=== PATIENT | female | born 1975 | race Caucasian/White ===

== ENCOUNTER 2017-11-12 06:50 | Emergency (ER) | payer OTHER ==
[2017-11-12 07:00] VITALS: BP 136/85; PULSE 79; RESP 18; TEMP 96.8
--- NOTE | 2017-11-12 07:52 | ED ---
General Adult HPI - General Chief complaint: Skin/Abscess/Foreign Body Stated complaint: facial swelling Time Seen by Provider: 11/12/17 07:00 Source: patient, RN notes reviewed Mode of arrival: ambulatory Limitations: no limitations - History of Present Illness Initial comments: This is a 41-year-old female presents emergency Department with 2 abscesses on her face that have been there for 2 days she states one was draining but it no longer straining. Patient states the pain is getting considerably worse in the abscesses are getting larger. Patient is requesting that we do an I&D. Patient denies any fever chills patient denies any pain in the teeth patient denies any other abscesses except those 2. Patient denies any drug abuse. - Related Data Previous Rx's Medication Instructions Recorded Cephalexin [Keflex] 500 mg PO Q6HR #28 cap 11/12/17 Sulfamethox-Tmp 800-160Mg [Bactrim 1 each PO Q12HR #14 tab 11/12/17 DS 800-160 mg] Sulfamethox-Tmp 800-160Mg [Bactrim 1 each PO Q12HR #28 tab 11/12/17 DS 800-160 mg] Allergies Allergy/AdvReac Type Severity Reaction Status Date / Time erythromycin base Allergy Severe Unknown Verified 11/12/17 07:28 [From E-Mycin] azithromycin [From Zithromax] Allergy Unknown Verified 11/12/17 07:28 Childhood Review of Systems ROS Statement: Those systems with pertinent positive or pertinent negative responses have been documented in the HPI. ROS Other: All systems not noted in ROS Statement are negative. 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: None Reported Past Surgical History: No Surgical Hx Reported Additional Past Surgical History / Comment(s): Surgery on right wrist Past Anesthesia/Blood Transfusion Reactions: No Reported Reaction Past Psychological History: Depression Smoking Status: Current every day smoker Past Alcohol Use History: Rare Past Drug Use History: Marijuana, Opiates, Prescription Drug Abuse - Past Family History Mother Family Medical History: Cancer Additional Family Medical History / Comment(s): mom had throat cancer, 3 aunts had cancer-breast General Exam - General Exam Comments Initial Comments: GENERAL Patient is well-developed and well-nourished. Patient is in mild distress. EYES Patient's pupils are equal and round. Extraocular motion is intact SKIN Is an abscess on the left side of the patient's face along the mandible and there is another abscess just above the mandible on the right side. The left side measures about 1-1/2 cm in diameter in the right measures about 1 cm in diameter NEURO The patient is alert and oriented 3 PYSCH Patient has normal interpersonal interactions. MUSCULOSKELETAL Limitations: no limitations Course Vital Signs 11/12/17 06:57 Temperature 96.8 F L Pulse Rate 79 Respiratory 18 Rate Blood Pressure 136/85 O2 Sat by Pulse 100 Oximetry Procedures - Incision & Drainage Consent Obtained: verbal consent Site: face Anesthetic Used: lidocaine 1% I&D Cleaning Method: Betadine Scalpel Used: #15 Needle Aspiration Performed?: Yes I&D Drainage Obtained: Pus Culture Obtained?: Yes Complications: pain Patient Tolerated Procedure: well Disposition Clinical Impression: Facial abscess Disposition: HOME SELF-CARE Instructions: Abscess (ED) Prescriptions: Cephalexin [Keflex] 500 mg PO Q6HR #28 cap Sulfamethox-Tmp 800-160Mg [Bactrim DS 800-160 mg] 1 each PO Q12HR #14 tab Sulfamethox-Tmp 800-160Mg [Bactrim DS 800-160 mg] 1 each PO Q12HR #28 tab Referrals: Sulaiman Cohen MD [Primary Care Provider] - 1-2 days Time of Disposition: 07:50
[2017-11-12] MEDS ORDERED: SULFAMETHOX-TMP 800-160MG 1 EACH TAB PO STA (07:53)
[2017-11-12] MEDS ORDERED: CEPHALEXIN 500 MG CAP PO STA (07:54)
== END 2017-11-12 08:00 | disposition home or self-care (01) ==
LOC: EC 06:50
DX: L02.01 Cutaneous abscess of face (principal); F17.200 Nicotine dependence, unspecified, uncomplicated; Z85.89 Personal history of malignant neoplasm of other organs and systems; Z88.1 Allergy status to other antibiotic agents
CPT/HCPCS: 10060; 87070; 87205; 99283

== ENCOUNTER 2018-08-07 12:05 | Emergency (ER) | payer OTHER ==
[2018-08-07 12:12] VITALS: BP 113/83; PULSE 100; RESP 16; TEMP 97.4
[2018-08-07] MEDS ORDERED: LIDOCAINE 1% INJ 10MG/ML (20 ML MDV) SQ STA (12:31)
--- NOTE | 2018-08-07 13:01 | ED ---
General Adult HPI - General Chief complaint: ENT Stated complaint: ear pain Time Seen by Provider: 08/07/18 12:22 Source: patient, RN notes reviewed Mode of arrival: ambulatory Limitations: no limitations - History of Present Illness Initial comments: Patient 42-year-old female presented to the emergency room today with chief complaint of possible abscess to the left year and underneath the right axilla. Patient states that she's never had anything similar response in the past. She states 5 days ago she felt a scato the left ear canal and used a small stick to try to scratch. She states that she's noticed had some increased swelling to the top part of the left ear over the last few days. Denies any drainage. Patient also admits that she noticed a spot in the right axilla over the last 2 days. She states both areas are tender and painful. Denies any other complaints or symptoms. Patient denies any recent fever, chills, shortness of breath, chest pain, back pain, abdominal pain, nausea or vomiting, numbness or tingling, headaches or visual changes, or any other complaints. - Related Data Previous Rx's Medication Instructions Recorded Cephalexin [Keflex] 500 mg PO Q6HR #28 cap 11/12/17 Sulfamethox-Tmp 800-160Mg [Bactrim 1 each PO Q12HR #14 tab 11/12/17 DS 800-160 mg] Sulfamethox-Tmp 800-160Mg [Bactrim 1 each PO Q12HR #28 tab 11/12/17 DS 800-160 mg] Sulfamethox-Tmp 800-160Mg [Bactrim 1 tab PO Q12HR #20 tab 08/07/18 DS 800-160 mg] Allergies Allergy/AdvReac Type Severity Reaction Status Date / Time erythromycin base Allergy Severe Unknown Verified 08/07/18 12:12 [From E-Mycin] azithromycin [From Zithromax] Allergy Unknown Verified 08/07/18 12:12 Childhood Review of Systems ROS Statement: Those systems with pertinent positive or pertinent negative responses have been documented in the HPI. ROS Other: All systems not noted in ROS Statement are negative. 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: MRSA Date of last positivie culture/infection: 11/12/17 MDRO Source:: face Past Surgical History: No Surgical Hx Reported Additional Past Surgical History / Comment(s): Surgery on right wrist Past Anesthesia/Blood Transfusion Reactions: No Reported Reaction Past Psychological History: Depression Smoking Status: Current every day smoker Past Alcohol Use History: Rare Past Drug Use History: Marijuana, Opiates, Prescription Drug Abuse - Past Family History Mother Family Medical History: Cancer Additional Family Medical History / Comment(s): mom had throat cancer, 3 aunts had cancer-breast General Exam - General Exam Comments Initial Comments: General: The patient is awake and alert, in no distress, and does not appear acutely ill. Ears, nose, mouth and throat: Patient does have abscess located to the superior aspect of the left ear canal. There is no active drainage. Neck: The neck is supple Musculoskeletal: Normal ROM, no tenderness. Strength 5/5. Sensation intact. Pulses equal bilaterally 2+. Neurological: A&O x 3. CN II-XII intact, There are no obvious motor or sensory deficits. Coordination appears grossly intact. Speech is normal. Skin: Patient does have small abscess to the right axilla measures approximately 1 cm. Area is firm on palpation there is no fluctuant center. He does have abscess to the left ear canal is mild fluctuance. This at the superior aspect of the left ear canal. No active drainage. Psychiatric: Cooperative, appropriate mood & affect, normal judgment. Limitations: no limitations Course Vital Signs 08/07/18 12:08 Temperature 97.4 F L Pulse Rate 100 Respiratory 16 Rate Blood Pressure 113/83 O2 Sat by Pulse 100 Oximetry Procedures - Procedures Initial comment: The left ear canals anesthetized with lidocaine locally placed in the ear canal and left for 20 minutes. An 18-gauge needle used to make small incision of the abscess to this. Left ear canal. Small amount of bloody drainage removed. Patient did not tolerate procedure well. Disposition Clinical Impression: Abscess of right axilla, Abscess of left ear canal Disposition: HOME SELF-CARE Condition: Good Instructions: Abscess (ED) Additional Instructions: Please use warm compresses to the affected area. Please use antibiotic as prescribed. Please return to emergency room symptoms increase or worsen or for any other concerns. Prescriptions: Sulfamethox-Tmp 800-160Mg [Bactrim DS 800-160 mg] 1 tab PO Q12HR #20 tab Is patient prescribed a controlled substance at d/c from ED?: No Referrals: Gonzalo Parsons DO [Primary Care Provider] - 1-2 days Time of Disposition: 13:04
[2018-08-07] MEDS ORDERED: SULFAMETH-TMP DS STARTER PACK 2 TAB BTL PO STA (13:04)
== END 2018-08-07 13:14 | disposition home or self-care (01) ==
LOC: EC 12:05
DX: H60.02 Abscess of left external ear (principal); L02.411 Cutaneous abscess of right axilla; F17.200 Nicotine dependence, unspecified, uncomplicated; Z86.14 Personal history of Methicillin resistant Staphylococcus aureus infection; Z88.1 Allergy status to other antibiotic agents
CPT/HCPCS: 99282; 69020; J2001

== ENCOUNTER 2019-05-27 14:46 | Inpatient (IN) | payer OTHER ==
--- NOTE | 2019-05-27 15:17 | ED ---
Lower Extremity Injury HPI - General Source: patient Mode of arrival: wheelchair Limitations: no limitations <Laura Gee - Last Filed: 05/27/19 22:37> <Emilia Lim - Last Filed: 05/31/19 16:11> - General Chief Complaint: Extremity Injury, Lower Stated Complaint: rt knee pain and swelling Time Seen by Provider: 05/27/19 15:12 - History of Present Illness Initial Comments: 43-year-old female presents emergency department for evaluation of right anterior knee pain and redness. Patient states that a few days prior she scraped her right knee after hitting the anterior aspect. Patient said she was able to ambulate and thought it was only a small abrasion. Patient states that her candidate developed redness over the past 2 days, she states is increasing today as well as an area that was draining. The abrasion. Patient denies any large fluctuant abscesses. Patient denies any posterior knee redness or pain. She states that when she extends her knee in full extension she has increased pain. Patient states she is able to bend her knee. Patient states that she can weight-bear walking is difficult. Patient has a fever or flulike symptoms. Patient states she was SYMPTOMS online and was administered she was septic and presented [facility] for further evaluation. Remaining review of system negative. Patient denies any other complaints patient denies any history of prosthesis, IV drug use (Laura Gee) - Related Data Home Medications Medication Instructions Recorded Confirmed Acetaminophen [Tylenol] 650 mg PO Q6H PRN 05/27/19 05/27/19 Ibuprofen [Motrin Ib] 800 mg PO Q6H PRN 05/27/19 05/27/19 Previous Rx's Medication Instructions Recorded Sulfamethox-Tmp 800-160Mg [Bactrim 1 tab PO Q12HR #28 tab 05/31/19 DS 800-160 mg] Allergies Allergy/AdvReac Type Severity Reaction Status Date / Time erythromycin base Allergy Severe Unknown Verified 05/27/19 16:30 [From E-Mycin] azithromycin [From Zithromax] Allergy Unknown Verified 05/27/19 16:30 Childhood Review of Systems ROS Other: All systems not noted in ROS Statement are negative. <Laura Gee - Last Filed: 05/27/19 22:37> ROS Other: All systems not noted in ROS Statement are negative. <Emilia Lim - Last Filed: 05/31/19 16:11> ROS Statement: Those systems with pertinent positive or pertinent negative responses have been documented in the HPI. 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: MRSA Date of last positivie culture/infection: 11/12/17 MDRO Source:: face Past Surgical History: No Surgical Hx Reported Additional Past Surgical History / Comment(s): Surgery on right wrist Past Anesthesia/Blood Transfusion Reactions: No Reported Reaction Past Psychological History: Depression Smoking Status: Current every day smoker Past Alcohol Use History: Rare Past Drug Use History: Marijuana, Opiates, Prescription Drug Abuse - Past Family History Mother Family Medical History: Cancer Additional Family Medical History / Comment(s): mom had throat cancer, 3 aunts had cancer-breast <Laura Gee - Last Filed: 05/27/19 22:37> General Exam Limitations: no limitations <Laura Gee - Last Filed: 05/27/19 22:37> - General Exam Comments Initial Comments: General: The patient is awake and alert Eye: +3 mm pupils are equal, round and reactive to light, extra-ocular movements are intact. No nystagmus. There is normal conjunctiva bilaterally. No signs of icterus. Ears, nose, mouth and throat: There are moist mucous membranes and no oral lesions. Neck: The neck is supple, there is no tenderness or JVD. Cardiovascular: There is a regular rate and rhythm. No murmur, rub or gallop is appreciated. Respiratory: Lungs are clear to auscultation, respirations are non-labored, breath sounds are equal. No wheezes, stridor, rales, or rhonchi. Gastrointestinal: Soft, non-distended, non-tender abdomen without masses or organomegaly noted. There is no rebound or guarding present. Musculoskeletal: Upon inspection of the knees bilaterally there is anterior soft tissue swelling and redness over the right anterior knee. There is no posterior redness or swelling or pain to palpation. Patient is diffusely tender over the anterior knee. There is no abscess . Small area of abrasion with drainage. Patient is able to flex however when it comes and maximal angle patient states the pain is intolerable patient is unable to fully extend the knee secondary to pain. Patient is able to weight-bear and stand. Strength preserved sensation intact both proximal and distal to injury site. +2 dorsalis pedis pulses bilaterally. Neurological: A&O x 3. CN II-XII intact grossly, There are no obvious motor or sensory deficits. Coordination appears grossly intact. Speech is normal. Skin: Skin is warm and dry and no rashes or lesions are noted. Psychiatric: Cooperative, appropriate mood & affect, normal judgment. (Laura Gee) Course Vital Signs 05/27/19 05/27/19 05/27/19 15:13 17:25 18:43 Temperature 97.9 F 98.1 F 98.0 F Pulse Rate 110 H 96 97 Respiratory 18 18 18 Rate Blood Pressure 113/71 108/84 111/83 O2 Sat by Pulse 99 100 100 Oximetry Medical Decision Making - Lab Data Result diagrams: 05/27/19 17:22 05/27/19 17:22 <Laura Gee - Last Filed: 05/27/19 22:37> - Lab Data Result diagrams: 05/30/19 06:32 05/31/19 07:01 <Emilia Lim - Last Filed: 05/31/19 16:11> - Medical Decision Making 43-year-old female presents emergency department for evaluation of red right knee x 2 days. Patient has an obvious overlying cellulitis of the right anterior knee joint. Patient is able to range greater than I would expected septic joint however cannot rule this without arthrocentesis. Patient does not have a large knee joint effusion on imaging studies. There is no obvious large bursa however there is trace amount of fluid within the suprapatellar bursa. We discussed with patient arthrocentesis and need for diagnosis, rule out. Patient refused stating she does not want that procedure performed even after discussion of risk vs benefit. Patient continued to refuse. Patient was offered a rthrocentesis by Dr. Lim attending provider who did evaluate the patient in person. Patient laboratory studies reveal mild leukocytosis. Lactic Acid WNL. Patient does not appears septic. Patient VS stable. Antibiotics initiated. Blood cultures pending. At this time we feel patient admission for IV antibiotics is appropriate. Admitted provider accepted after speaking with Dr. Lim. Orthopedic on consult. Patient agreeable with admission at this time. (Laura Gee) I was available for consultation in the emergency department. The history and physical exam were done by the midlevel provider. I was consulted for this patients care. I reviewed the case with the midlevel provider and based on their presentation of the patient, I agree with the assessment, medical decision making and plan of care as documented. I evaluated the patient myself and recommended arthrocentesis. Patient refused. She is aware of the risks of not allowing me to perform the procedure. I recommended hospital admission. The patient agreed. I spoke with the admitting doctor who accepted the admission with ortho to consult Chart was dictated using [employer] dictation software. Attempts were made to correct any dictation errors however some typographical errors may persist. (Emilia Lim) - Lab Data Lab Results 05/27/19 05/27/19 05/27/19 Range/Units 17:22 17:22 17:22 WBC 11.5 H (3.8-10.6) k/uL RBC 4.45 (3.80-5.40) m/uL Hgb 13.3 (11.4-16.0) gm/dL Hct 38.9 (34.0-46.0) % MCV 87.3 (80.0-100.0) fL MCH 29.8 (25.0-35.0) pg MCHC 34.1 (31.0-37.0) g/dL RDW 12.7 (11.5-15.5) % Plt Count 241 (150-450) k/uL Neutrophils % 87 % Lymphocytes % 7 % Monocytes % 5 % Eosinophils % 0 % Basophils % 0 % Neutrophils # 10.0 H (1.3-7.7) k/uL Lymphocytes # 0.8 L (1.0-4.8) k/uL Monocytes # 0.5 (0-1.0) k/uL Eosinophils # 0.0 (0-0.7) k/uL Basophils # 0.0 (0-0.2) k/uL Sodium 138 (137-145) mmol/L Potassium 3.5 (3.5-5.1) mmol/L Chloride 101 (98-107) mmol/L Carbon Dioxide 29 (22-30) mmol/L Anion Gap 8 mmol/L BUN 9 (7-17) mg/dL Creatinine 0.67 (0.52-1.04) mg/dL Est GFR (CKD-EPI)AfAm >90 (>60 ml/min/1.73 sqM) Est GFR (CKD-EPI)NonAf >90 (>60 ml/min/1.73 sqM) Glucose 102 H (74-99) mg/dL Plasma Lactic Acid Imtiaz 0.9 (0.7-2.0) mmol/L Calcium 8.8 (8.4-10.2) mg/dL Total Bilirubin 0.6 (0.2-1.3) mg/dL AST 21 (14-36) U/L ALT 29 (9-52) U/L Alkaline Phosphatase 78 (38-126) U/L Total Protein 7.7 (6.3-8.2) g/dL Albumin 4.1 (3.5-5.0) g/dL Ur Specific [place] (1.001-1.035) Urine HCG, Qual (Not Detectd) Vancomycin Trough ug/mL Urine Opiates Screen (Negative) ng/mL Urine Methadone Screen (Negative) ng/mL Ur Propoxyphene Screen (Negative) ng/mL Urine Barbiturates (Negative) ng/mL Ur Phencyclidine Scrn (Negative) ng/mL Ur Amphetamine Screen (Negative) ng/mL U Benzodiazepines Scrn (Negative) ng/mL Urine Cocaine Screen (Negative) ng/mL U Cannabinoids Screen (Negative) ng/mL Urine Alcohol (Negative) mg/dL 05/28/19 05/28/19 05/29/19 Range/Units 06:27 06:27 09:53 WBC 8.1 (3.8-10.6) k/uL RBC 4.16 (3.80-5.40) m/uL Hgb 12.3 (11.4-16.0) gm/dL Hct 36.4 (34.0-46.0) % MCV 87.5 (80.0-100.0) fL MCH 29.7 (25.0-35.0) pg MCHC 33.9 (31.0-37.0) g/dL RDW 12.4 (11.5-15.5) % Plt Count 205 (150-450) k/uL Neutrophils % % Lymphocytes % % Monocytes % % Eosinophils % % Basophils % % Neutrophils # (1.3-7.7) k/uL Lymphocytes # (1.0-4.8) k/uL Monocytes # (0-1.0) k/uL Eosinophils # (0-0.7) k/uL Basophils # (0-0.2) k/uL Sodium 137 (137-145) mmol/L Potassium 3.3 L (3.5-5.1) mmol/L Chloride 102 (98-107) mmol/L Carbon Dioxide 29 (22-30) mmol/L Anion Gap 6 mmol/L BUN 4 L (7-17) mg/dL Creatinine 0.52 (0.52-1.04) mg/dL Est GFR (CKD-EPI)AfAm >90 (>60 ml/min/1.73 sqM) Est GFR (CKD-EPI)NonAf >90 (>60 ml/min/1.73 sqM) Glucose 109 H (74-99) mg/dL Plasma Lactic Acid Imtiaz (0.7-2.0) mmol/L Calcium 8.2 L (8.4-10.2) mg/dL Total Bilirubin (0.2-1.3) mg/dL AST (14-36) U/L ALT (9-52) U/L Alkaline Phosphatase (38-126) U/L Total Protein (6.3-8.2) g/dL Albumin (3.5-5.0) g/dL Ur Specific [place] (1.001-1.035) Urine HCG, Qual (Not Detectd) Vancomycin Trough ug/mL Urine Opiates Screen Negative (Negative) ng/mL Urine Methadone Screen Negative (Negative) ng/mL Ur Propoxyphene Screen Negative (Negative) ng/mL Urine Barbiturates Negative (Negative) ng/mL Ur Phencyclidine Scrn Negative (Negative) ng/mL Ur Amphetamine Screen Positive H (Negative) ng/mL U Benzodiazepines Scrn Positive H (Negative) ng/mL Urine Cocaine Screen Negative (Negative) ng/mL U Cannabinoids Screen Positive H (Negative) ng/mL Urine Alcohol Negative (Negative) mg/dL 05/29/19 05/29/19 05/29/19 Range/Units 09:53 09:53 09:59 WBC (3.8-10.6) k/uL RBC (3.80-5.40) m/uL Hgb (11.4-16.0) gm/dL Hct (34.0-46.0) % MCV (80.0-100.0) fL MCH (25.0-35.0) pg MCHC (31.0-37.0) g/dL RDW (11.5-15.5) % Plt Count (150-450) k/uL Neutrophils % % Lymphocytes % % Monocytes % % Eosinophils % % Basophils % % Neutrophils # (1.3-7.7) k/uL Lymphocytes # (1.0-4.8) k/uL Monocytes # (0-1.0) k/uL Eosinophils # (0-0.7) k/uL Basophils # (0-0.2) k/uL Sodium (137-145) mmol/L Potassium (3.5-5.1) mmol/L Chloride (98-107) mmol/L Carbon Dioxide (22-30) mmol/L Anion Gap mmol/L BUN (7-17) mg/dL Creatinine (0.52-1.04) mg/dL Est GFR (CKD-EPI)AfAm (>60 ml/min/1.73 sqM) Est GFR (CKD-EPI)NonAf (>60 ml/min/1.73 sqM) Glucose (74-99) mg/dL Plasma Lactic Acid Imtiaz (0.7-2.0) mmol/L Calcium (8.4-10.2) mg/dL Total Bilirubin (0.2-1.3) mg/dL AST (14-36) U/L ALT (9-52) U/L Alkaline Phosphatase (38-126) U/L Total Protein (6.3-8.2) g/dL Albumin (3.5-5.0) g/dL Ur Specific [place] 1.007 (1.001-1.035) Urine HCG, Qual Not Detected (Not Detectd) Vancomycin Trough 10.5 ug/mL Urine Opiates Screen (Negative) ng/mL Urine Methadone Screen (Negative) ng/mL Ur Propoxyphene Screen (Negative) ng/mL Urine Barbiturates (Negative) ng/mL Ur Phencyclidine Scrn (Negative) ng/mL Ur Amphetamine Screen (Negative) ng/mL U Benzodiazepines Scrn (Negative) ng/mL Urine Cocaine Screen (Negative) ng/mL U Cannabinoids Screen (Negative) ng/mL Urine Alcohol (Negative) mg/dL Disposition Is patient prescribed a controlled substance at d/c from ED?: No Time of Disposition: 17:01 Decision to Admit Reason: Admit from EC Decision Date: 05/27/19 Decision Time: 17:01 <Laura Gee - Last Filed: 05/27/19 22:37> <Emilia Lim - Last Filed: 05/31/19 16:11> Clinical Impression: Septic bursitis, Cellulitis of right knee, Right knee pain Disposition: ADMITTED IP TO THIS HOSP Condition: Stable
[2019-05-27] MEDS ORDERED: cefTRIAXone 1,000 MG VIAL (IM USE) IM STA (15:18)
[2019-05-27] MEDS ORDERED: HYDROcodone/APAP 5-325MG 1 EACH TAB PO STA (15:18)
--- NOTE | 2019-05-27 15:33 | XR ---
EXAMINATION TYPE: XR knee complete RT DATE OF EXAM: 05/27/2019 COMPARISON: NONE HISTORY: Swelling, cellulitis TECHNIQUE: Four views are submitted. FINDINGS: Joint spaces are preserved. Osseous structures are intact. No acute fracture seen. Diffuse subcuta neous edema. Trace amount of fluid in the suprapatellar bursa IMPRESSION: 1. Diffuse soft tissue edema. Cannot exclude a trace amount of fluid in the suprapatellar bursa.
[2019-05-27] MEDS ORDERED: VANCOMYCIN IV PER PHARMACY 1 EACH MISC MISCELLANE PRN (16:55)
[2019-05-27] MEDS ORDERED: NALOXONE 0.4 MG/ML 1 ML VIAL IV PRN (16:56)
[2019-05-27] MEDS ORDERED: VANCOMYCIN 1,250 MG in SODIUM CHLORIDE 0.9% 250 ML IVPB ONE (17:15)
[2019-05-27 17:37] LABS: Basophils % (A) 0 %; Eosinophils % (A) 0 %; HCT 38.9 % (34.0-46.0); HGB 13.3 gm/dL (11.4-16.0); Lymphocytes # (A) 0.8 k/uL (1.0-4.8); Lymphocytes % (A) 7 %; MCH 29.8 pg (25.0-35.0); MCHC 34.1 g/dL (31.0-37.0); MCV 87.3 fL (80.0-100.0); Monocytes # (A) 0.5 k/uL (0-1.0); Monocytes % (A) 5 %; Neutrophils % (A) 87 %; Platelet Count 241 k/uL (150-450); RBC 4.45 m/uL (3.80-5.40); RDW 12.7 % (11.5-15.5); WBC 11.5 k/uL (3.8-10.6)
[2019-05-27 17:46] LABS: ALT 29 U/L (9-52); AST 21 U/L (14-36); African American GFR (CKD) >90 (>60 ml/min/1.73 sqM); Albumin 4.1 g/dL (3.5-5.0); Alkaline Phosphatase 78 U/L (38-126); Anion Gap 8 mmol/L; Blood Urea Nitrogen 9 mg/dL (7-17); Calcium 8.8 mg/dL (8.4-10.2); Carbon Dioxide 29 mmol/L (22-30); Chloride 101 mmol/L (98-107); Glucose 102 mg/dL (74-99); Potassium 3.5 mmol/L (3.5-5.1); Sodium 138 mmol/L (137-145); Total Bilirubin 0.6 mg/dL (0.2-1.3); Total Protein 7.7 g/dL (6.3-8.2)
[2019-05-27] MEDS ORDERED: ACETAMINOPHEN TAB 325 MG TAB PO PRN (18:40)
[2019-05-27] MEDS ORDERED: BISACODYL 5 MG TABLET.DR PO PRN (18:40)
[2019-05-27] MEDS ORDERED: MELATONIN 5 MG TABLET PO PRN (18:44)
[2019-05-27] MEDS ORDERED: ALBUTEROL NEBULIZED 2.5 MG/3 ML INHALATION PRN (18:46)
--- NOTE | 2019-05-27 18:50 | P.HPIM ---
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 In the emergency department she underwent an extensive evaluation. On arrival she was tachycardic with a heart rate of 110. Laboratory analysis showed an elevated white blood cell count 11.5, an x-ray of the right knee showed soft tissue edema with trace amounts of fluid in the suprapatellar bursa. She was given a dose of Rocephin and vancomycin the emergency department. She was admitted for concerns of septic bursitis. Patient seen and examined at bedside in the emergency department. She is recently been helping her family with haunted house in the [facility]. She is playing the role of a whitch, she would be kneeling on the damp ground and jump up. On Thursday she noted a slight cut on her right knee and pain, tightness, and swelling. She did note a small abrasion to the prepatellar area that was dark. She initially thought that she had used the need to much with bending and jumping. On Thursday she noted some warmth and erythema. Yesterday she was havi ng high amounts of pain in that knee. The knee became acutely red, the swelling greatly increased, and she started having purulent drainage from directly below the abrasion. She also noted a small fluctuant area developed over the kneecap. She was having some generalized fever and chills, decreased appetite, malaise, nausea, and overall not feeling well. She took several Tylenol yesterday which took the edge off the pain. Today she began to feel worse and have more pain so she presented to the emergency department. She states the pain is actually the worst when she is trying to lay still or with rest. She denies any history of prior injury to the knee. She does report a history of facial cellulitis but is unsure whether it was MRSA or not. No history of IVDA. Review of Systems Pertinent positives and negatives as discussed in HPI, a complete review of systems was performed and all other systems are negative. 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: MRSA Date of last positivie culture/infection: 11/12/17 MDRO Source:: face Additional Past Surgical History / Comment(s): Surgery on right wrist Past Anesthesia/Blood Transfusion Reactions: No Reported Reaction Past Psychological History: Depression Smoking Status: Current every day smoker Past Alcohol Use History: Rare Past Drug Use History: Cocaine, Marijuana Additional History: Currently smokes marijuana, reports history of cocaine abuse but not years, lives with her son - Past Family History Mother Family Medical History: Cancer Additional Family Medical History / Comment(s): mom had throat cancer, 3 aunts had cancer-breast Medications and Allergies Home Medications Medication Instructions Recorded Confirmed Type Acetaminophen [Tylenol] 650 mg PO Q6H PRN 05/27/19 05/27/19 History Ibuprofen [Motrin Ib] 800 mg PO Q6H PRN 05/27/19 05/27/19 History Allergies Allergy/AdvReac Type Severity Reaction Status Date / Time erythromycin base Allergy Severe Unknown Verified 05/27/19 16:30 [From E-Mycin] azithromycin [From Zithromax] Allergy Unknown Verified 05/27/19 16:30 Childhood Physical Exam Osteopathic Statement: *. No significant issues noted on an osteopathic structu ral exam other than those noted in the History and Physical/Consult. Vitals: Vital Signs Temp Pulse Resp BP Pulse Ox 05/27/19 17:25 98.1 F 96 18 108/84 100 05/27/19 15:13 97.9 F 110 H 18 113/71 99 Intake and Output 05/27/19 05/27/19 05/27/19 06:59 14:59 22:59 Other: Weight 63.503 kg General: ill appearing, mild distress due to pain, appears older than stated age , normal weight Derm: Eryhtema, with warmth small area of brasain and distal to that small area of purulence, swelling, no limitation of flexion or extension of the knee. no unusual ecchymoses, warm, dry Head: atraumatic, normocephalic, symmetric Eyes: EOMI, no lid lag, anicteric sclera, pupils equal round reactive to light ENT: Nose and ears atraumatic, no thrush, no pharyngeal erythema Neck: No thyromegaly, no cervical lymphadenopathy, trachea midline, supple Mouth: no lip lesion, mucus membranes moist Cardiovascular: S1S2 reg, no murmur, positive posterior tibial pulse bilateral, 1+ non pitting edema right calf, capillary refill less than 2 seconds Lungs: CTA bilateral, no rhonchi, no rales , no accessory muscle use Abdominal: soft, nontender to palpation, no guarding, no appreciable organomegaly, normal bowel sounds Ext: no gross muscle atrophy, muscle strength 5 out of 5 in upper extremities grossly, no contractures, Neuro: CN II-XI grossly intact, light touch intact all 4 extremities, finger to nose within normal limits, Psych: Alert, oriented, appropriate affect Results CBC & Chem 7: 05/27/19 17:22 10 17:22 Labs: Abnormal Lab Results - Last 24 Hours (Table) 05/27/19 05/27/19 Range/Units 17:22 17:22 WBC 11.5 H (3.8-10.6) k/uL Neutrophils # 10.0 H (1.3-7.7) k/uL Lymphocytes # 0.8 L (1.0-4.8) k/uL Glucose 102 H (74-99) mg/dL Comments: knee x-ray reviewed Thrombosis Risk Factor Assmnt - DVT/VTE Prophylaxis DVT/VTE Prophylaxis: Low risk, early ambulation encouraged Assessment and Plan Assessment: Right knee cellulitis with possible septic bursitis and intractable pain - vanco - consult ortho - IV fluids - Await blood cultures - pain control - Consult ID in AM if erythemia is not significantly improved asked nursing to yoli line of demarcation. Tobacco abuse - cessation - nicotine replacement asthma, mild intermittent - not on outpatient medications - prn albuterol The patient is placed in observation with an anticipated less than 2 midnight stay for evaluation of Knee septic bursitis. Required monitoring and IV antibiotics as if this is septic bursitis and is left untreated has a higher likely of permanent joint damaged, development of bacteremia, and potential evolution to systemic sepsis. Surrogate decision-maker: Gallito montalvo ED -[phone] CODE STATUS:full DVT prophylaxis: Early ambulation Discussed with: patient Anticipated discharge date: 2-[address]: home A total of 65 minutes was spent on the care of this complex patient more than 50% of the time was spent in counseling and care coordination.
[2019-05-27] MEDS: HYDROcodone/APAP 5-325MG 1 EACH TAB PO PRN (19:44)
[2019-05-27] MEDS: ONDANSETRON 4 MG/2 ML VIAL IVP SCH (19:46)
[2019-05-27] MEDS: SODIUM CHLORIDE 0.9% 1,000 ML IV SCH (21:31)
[2019-05-28] MEDS: ONDANSETRON 4 MG/2 ML VIAL IVP SCH ×3 (01:01→18:27)
[2019-05-28] MEDS: HYDROcodone/APAP 5-325MG 1 EACH TAB PO PRN ×4 (01:01→22:16)
[2019-05-28] MEDS: VANCOMYCIN 1,250 MG in SODIUM CHLORIDE 0.9% 250 ML IVPB SCH ×3 (02:32→18:34)
[2019-05-28] MEDS: SODIUM CHLORIDE 0.9% 1,000 ML IV SCH ×2 (02:32→15:40)
[2019-05-28 06:58] LABS: HCT 36.4 % (34.0-46.0); HGB 12.3 gm/dL (11.4-16.0); MCH 29.7 pg (25.0-35.0); MCHC 33.9 g/dL (31.0-37.0); MCV 87.5 fL (80.0-100.0); Mean Platelet Volume 6.4; Platelet Count 205 k/uL (150-450); RBC 4.16 m/uL (3.80-5.40); RDW 12.4 % (11.5-15.5); WBC 8.1 k/uL (3.8-10.6)
[2019-05-28 07:12] LABS: African American GFR (CKD) >90 (>60 ml/min/1.73 sqM); Anion Gap 6 mmol/L; Blood Urea Nitrogen 4 mg/dL (7-17); Calcium 8.2 mg/dL (8.4-10.2); Carbon Dioxide 29 mmol/L (22-30); Chloride 102 mmol/L (98-107); Glucose 109 mg/dL (74-99); Potassium 3.3 mmol/L (3.5-5.1); Sodium 137 mmol/L (137-145)
[2019-05-28] MEDS ORDERED: POTASSIUM CHLORIDE ER 20 MEQ TAB.ER PO STA (08:34)
[2019-05-28] MEDS: NICOTINE 14MG/24HR PATCH TRANSDERM SCH (09:19)
[2019-05-28] MEDS: MORPHINE SULFATE 4 MG/ML SYRINGE IVP PRN (09:51)
--- NOTE | 2019-05-28 14:17 | P.CONS ---
History of Present Illness - Reason for Consult Consult date: 05/28/19 - Chief Complaint Injury right knee - History of Present Illness 43-year-old female who presents emergency center for evaluation of increasing pain to her right knee. 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 She relates over the days before coming in she's having increasing pain and discomfort to her knee. She thought she had a small injury from the kneeling. Eventually she had some increasing warmth and erythema noticed that the the area became very warm and red MrThompson to have some dr holley for there was a small cut that had formed. It markedly increased in size and consequently presents to the emergency centerDoes not recall having any particular difficulties like this in the past. She feels like she's been somewhat febrile but no significant chills or rigors. She feels quite poorly. 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 She does have a known history of recreational drug use which she relates is not current Review of Systems 43-year-old woman feels poorly HEENT:Denies headache or acute visual change. Denies sinus or mouth discomforts. Denies neck stiffness or pain. Denies significant oral cavity pain. Denies difficulty on swallowing. Lungs: Denies significant shortness of breath, cough, sputum production, or hemoptysis. Cardiovascular: Denies significant shortness of breath, chest pain, chest wall pain, orthopnea, dyspnea on exertion, syncope Gastrointestinal:Denies nausea, vomiting, diarrhea, constipation, hematemesis, melena, hematochezia. No no significant change of bowel habit noticed. Musculoskeletal: As per the HPI significant pain and swelling discomfort right knee Skin: Denies new rash or lesions. No new ulcers or wounds are related.. Neuro: Denies headache or visual change. Denies any new onset weakness or difficulty with ambulation. Denies falls or seizures. Psychiatric: Chronic anxiety and depression Endocrine: Chronic fatigue difficulty keeping her weight 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: MRSA Year Discovered:: 11/12/17 MDRO Source:: face Past Surgical History: No Surgical Hx Reported Additional Past Surgical History / Comment(s): Surgery on right wrist Past Anesthesia/Blood Transfusion Reactions: No Reported Reaction Past Psychological History: Depression Additional Psychological History / Comment(s): Single. Works for the [employer] business. Has not been recently incarcerated. Has a history of recreational drug use continues to use marijuana denies current cocaine or methamphetamine use. It is related that she did lose custody of her children because of her drug use. Is an ongoing active tobacco smoker. Denies Alcohol use. no experience. Denies animal exposures. But is having a severe amount of exposure to outside due to her work Smoking Status: Current every day smoker Past Alcohol Use History: Rare Past Drug Use History: Marijuana, Opiates, Prescription Drug Abuse - Past Family History Mother Family Medical History: Cancer Additional Family Medical History / Comment(s): mom had throat cancer, 3 aunts had cancer-breast Medications and Allergies Home Medications and Allergies Comment(s): Current Medications Acetaminophen (Tylenol Tab) 650 mg PO Q6HR PRN PRN Reason: Mild Pain or Fever > 100.5 Hydrocodone Bitart/Acetaminophen ([place] 5-325) 1 each PO Q4HR PRN PRN Reason: Moderate Pain Last Admin: 05/28/19 04:36 Dose: 1 each Documented by: Albuterol Sulfate (Ventolin Nebulized) 2.5 mg INHALATION RT-QID PRN PRN Reason: Shortness Of Breath Or Wheezing Bisacodyl (Dulcolax) 5 mg PO DAILY PRN PRN Reason: Constipation Sodium Chloride (Saline 0.9%) 1,000 mls @ 100 mls/hr IV .Q10H [facility] Last Admin: 05/28/19 02:32 Dose: 100 mls/hr Documented by: Vancomycin HCl 1,250 mg/ (Sodium Chloride) 250 mls @ 125 mls/hr IVPB Q8H [facility] Last Admin: 05/28/19 12:02 Dose: 125 mls/hr Documented by: Ketorolac Tromethamine (Toradol) 15 mg IVP Q6HR PRN PRN Reason: Moderate Pain Stop: 06/26/19 18:41 Melatonin (Melatonin) 5 mg PO HS PRN PRN Reason: Insomnia Miscellaneous Information (Vancomycin Trough Due) 1 each MISCELLANE ONCE ONE Stop: 05/29/19 10:01 Morphine Sulfate (Morphine Sulfate (Inj)) 4 mg IVP Q4HR PRN PRN Reason: SEVERE Pain Last Admin: 05/28/19 09:51 Dose: 4 mg Documented by: Naloxone HCl (Narcan) 0.2 mg IV Q2M PRN PRN Reason: Opioid Reversal Nicotine (Habitrol 14mg/24hr Patch) 1 patch TRANSDERM DAILY [facility] Last Admin: 05/28/19 09:19 Dose: 1 patch Documented by: Ondansetron HCl (Zofran) 4 mg IVP Q8H [facility] Last Admin: 05/28/19 10:58 Dose: Not Given Documented by: Home Medications Medication Instructions Recorded Confirmed Type Acetaminophen [Tylenol] 650 mg PO Q6H PRN 05/27/19 05/27/19 History Ibuprofen [Motrin Ib] 800 mg PO Q6H PRN 05/27/19 05/27/19 History Allergies Allergy/AdvReac Type Severity Reaction Status Date / Time erythromycin base Allergy Severe Unknown Verified 05/27/19 16:30 [From E-Mycin] azithromycin [From Zithromax] Allergy Unknown Verified 05/27/19 16:30 Childhood Physical Exam Vitals: Vital Signs Temp Pulse Pulse Resp BP BP Pulse Ox 05/28/19 07:00 98 F 100 16 116/75 98 05/28/19 00:55 97.8 F 84 19 117/76 99 05/27/19 20:45 98.1 F 91 16 110/73 99 05/27/19 18:43 98.0 F 97 18 111/83 100 05/27/19 17:25 98.1 F 96 18 108/84 100 05/27/19 15:13 97.9 F 110 H 18 113/71 99 Intake and Output 05/27/19 05/28/19 05/28/19 22:59 06:59 14:59 Intake Total 250 Balance 250 Intake: Intake, IV Titration 250 Amount Vancomycin 1,250 mg In 250 Sodium Chloride 0.9% 250 ml @ 125 mls/hr IVPB Q8H [facility] Rx#:[id number] Other: Weight 63.503 kg 43-year-old woman who looks considerably older than her stated age HEENT: Anicteric conjunctiva are pink and moist nasal mucosa grossly intact without significant lesions, there is no thrush. Neck: The neck is supple without significant lymphadenopathy or thyromegaly. Lungs: Good bilateral air entry without significant crackles or wheezing. There is no significant bronchial sounds. There is no egophony or dullness. Heart: Regular rate and rhythm with an audible S1-S2, no S3 no S4. There is no significant murmur click or rub, PMI was nondisplaced. Abdomen: Positive bowel sounds soft and nontender without palpable masses or organomegaly. There was no guarding or rebound. Extremities: Upper extremities reveal evidence of the extensive amount of tattoos however none are new and none of them are infected does have evidence of the IV site without difficulty The bilateral lower extremities have no edema. However the right knee has evidence of the extensive change. There is no warmth or erythema without matthieu crepitance to the anterior aspect of the distal aspect of the knee. His some scant amount of expressible material that appears to be mildly seropurulent Neuro: Awake alert oriented to person place and time. There are no acute new gross focal sensory motor deficits. Does have some chronic anxiety. Results CBC & Chem 7: 05/28/19 06:27 05/28/19 06:27 Labs: Abnormal Lab Results - Last 24 Hours (Table) 05/27/19 05/27/19 05/28/19 Range/Units 17:22 17:22 06:27 WBC 11.5 H (3.8-10.6) k/uL Neutrophils # 10.0 H (1.3-7.7) k/uL Lymphocytes # 0.8 L (1.0-4.8) k/uL Potassium 3.3 L (3.5-5.1) mmol/L BUN 4 L (7-17) mg/dL Glucose 102 H 109 H (74-99) mg/dL Calcium 8.2 L (8.4-10.2) mg/dL Laboratory Results WBC 8.1 k/uL (3.8-10.6) 05/28/19 06:27 RBC 4.16 m/uL (3.80-5.40) 05/28/19 06:27 Hgb 12.3 gm/dL (11.4-16.0) 05/28/19 06:27 Hct 36.4 % (34.0-46.0) 05/28/19 06:27 MCV 87.5 fL (80.0-100.0) 05/28/19 06:27 MCH 29.7 pg (25.0-35.0) 05/28/19 06:27 MCHC 33.9 g/dL (31.0-37.0) 05/28/19 06:27 RDW 12.4 % (11.5-15.5) 05/28/19 06:27 Plt Count 205 k/uL (150-450) 05/28/19 06:27 Neutrophils % 87 % 05/27/19 17:22 Lymphocytes % 7 % 05/27/19 17:22 Monocytes % 5 % 05/27/19 17:22 Eosinophils % 0 % 05/27/19 17:22 Basophils % 0 % 05/27/19 17:22 Neutrophils # 10.0 k/uL (1.3-7.7) H 05/27/19 17:22 Lymphocytes # 0.8 k/uL (1.0-4.8) L 05/27/19 17:22 Monocytes # 0.5 k/uL (0-1.0) 05/27/19 17:22 Eosinophils # 0.0 k/uL (0-0.7) 05/27/19 17:22 Basophils # 0.0 k/uL (0-0.2) 05/27/19 17:22 Sodium 137 mmol/L (137-145) 05/28/19 06:27 Potassium 3.3 mmol/L (3.5-5.1) L 05/28/19 06:27 Chloride 102 mmol/L (98-107) 05/28/19 06:27 Carbon Dioxide 29 mmol/L (22-30) 05/28/19 06:27 Anion Gap 6 mmol/L 05/28/19 06:27 BUN 4 mg/dL (7-17) L 05/28/19 06:27 Creatinine 0.52 mg/dL (0.52-1.04) 05/28/19 06:27 Est GFR (CKD-EPI)AfAm >90 (>60 ml/min/1.73 sqM) 05/28/19 06:27 Est GFR (CKD-EPI)NonAf >90 (>60 ml/min/1.73 sqM) 05/28/19 06:27 Glucose 109 mg/dL (74-99) H 05/28/19 06:27 Plasma Lactic Acid Imtiaz 0.9 mmol/L (0.7-2.0) 05/27/19 17:22 Calcium 8.2 mg/dL (8.4-10.2) L 05/28/19 06:27 Total Bilirubin 0.6 mg/dL (0.2-1.3) 05/27/19 17:22 AST 21 U/L (14-36) 05/27/19 17:22 ALT 29 U/L (9-52) 05/27/19 17:22 Alkaline Phosphatase 78 U/L (38-126) 05/27/19 17:22 Total Protein 7.7 g/dL (6.3-8.2) 05/27/19 17:22 Albumin 4.1 g/dL (3.5-5.0) 05/27/19 17:22 Assessment and Plan (1) Cellulitis of right knee Narrative/Plan: 43-year-old female presents hospital with increasing pain and swelling discomfort to her right knee. She has been evaluated by orthopedics with no plan for surgical intervention at this point in time to the acute right prepatellar bursa infection. She does have a history of MRSA infection on her face and likely that is occurring on the knee at this point in time. Vancomycin therapy has been initiated will be continued for now. Local wound care with Silvadene wrap will be applied to try to help with discomfort. She will follow-up with orthopedics and if she is not improved she may need incision and drainage of that prepatellar bursa to allow it to drain if she does not rapidly improve. She believes she is up-to-date on her tetanus Multivitamin is added Have requested a protein supplement to help with her healing Current Visit: Yes Status: Acute Code(s): L03.115 - CELLULITIS OF RIGHT LOWER LIMB SNOMED Code(s): 57372259004904133 (2) Septic bursitis Current Visit: Yes Status: Acute Code(s): M71.10 - OTHER INFECTIVE BURSITIS, UNSPECIFIED SITE SNOMED Code(s): 029379324 (3) Smoker Current Visit: Yes Status: Acute Code(s): F17.200 - NICOTINE DEPENDENCE, UNSPECIFIED, UNCOMPLICATED SNOMED Code(s): 30956497
[2019-05-28] MEDS: KETOROLAC 30 MG/ML 1 ML VIAL IVP PRN (15:38)
[2019-05-28] MEDS: MULTIVITAMINS, THERA 1 EACH TAB PO SCH (15:39)
--- NOTE | 2019-05-28 20:06 | P.CNOR ---
History of Present Illness - [facility] Consult date: 05/28/19 Consult reason: joint pain History of present illness: Patient is a 43-year-old female seen at bedside this am in consultation for right knee prepatellar bursitis. She was admitted through the emergency department yesterday stating that a few days prior she scraped her right knee. Patient said she was able to ambulate and thought it was only a small abrasion. Patient states that she developed redness over the past 2 days, she states that it increased and developed a head and started to express purulence. Patient denies any large fluctuant abscesses. Patient denies any posterior knee redness or pain. Patient states she is able to bend and straighten her knee. Patient states that she can weight-bear but walking is painful at the front of her knee. She currently is denying fever or chills this morning. She has been receiving IV Vancomycin. Remaining review of system negative. Patient denies any other complaints patient denies any history of prosthesis, IV drug use Review of Systems All systems: negative Constitutional: Denies chills, Denies fever Eyes: denies blurred vision, denies pain Ears, nose, mouth and throat: Denies headache, Denies sore throat Cardiovascular: Denies chest pain, Denies shortness of breath Respiratory: Denies cough Gastrointestinal: Denies abdominal pain, Denies diarrhea, Denies nausea, Denies vomiting Genitourinary: Denies dysuria, Denies hematuria Musculoskeletal: Denies myalgias Integumentary: Denies pruritus, Denies rash Neurological: Denies numbness, Denies weakness Psychiatric: Denies anxiety, Denies depression Endocrine: Denies fatigue, Denies weight change 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: MRSA Year Discovered:: 11/12/17 MDRO Source:: face Past Surgical History: No Surgical Hx Reported Additional Past Surgical History / Comment(s): Surgery on right wrist Past Anesthesia/Blood Transfusion Reactions: No Reported Reaction Past Psychological History: Depression Additional Psychological History / Comment(s): Single. Works for the [employer]. Has not been recently incarcerated. Has a history of recreational drug use continues to use marijuana denies current cocaine or methamphetamine use. It is related that she did lose custody of her children because of her drug use. Is an ongoing active tobacco smoker. Denies Alcohol use. no experience. Denies animal exposures. But is having a severe amount of exposure to outside due to her work Smoking Status: Current every day smoker Past Alcohol Use History: Rare Past Drug Use History: Marijuana, Opiates, Prescription Drug Abuse - Past Family History Mother Family Medical History: Cancer Additional Family Medical History / Comment(s): mom had throat cancer, 3 aunts had cancer-breast Medications and Allergies Home Medications Medication Instructions Recorded Confirmed Type Acetaminophen [Tylenol] 650 mg PO Q6H PRN 05/27/19 05/27/19 History Ibuprofen [Motrin Ib] 800 mg PO Q6H PRN 05/27/19 05/27/19 History Allergies Allergy/AdvReac Type Severity Reaction Status Date / Time erythromycin base Allergy Severe Unknown Verified 05/27/19 16:30 [From E-Mycin] azithromycin [From Zithromax] Allergy Unknown Verified 05/27/19 16:30 Childhood Physical Examination Inspection reveals erythema about the anterior aspect of the knee. There is a small punctate wound with mild purulence. No active bleeding. There is no knee effusion. There is mild edema/cellulitus around the patella superficially. It remains within previous demarcation. It is warm to touch. There is anterior knee pain with flexion to 90 degrees. She has full extension. The knee is ligamentously stable. Calf is SNT. She is NVI with motor, sensation and per fusion Results - Labs Labs: Abnormal Lab Results - Last 24 Hours (Table) 05/28/19 Range/Units 06:27 Potassium 3.3 L (3.5-5.1) mmol/L BUN 4 L (7-17) mg/dL Glucose 109 H (74-99) mg/dL Calcium 8.2 L (8.4-10.2) mg/dL Microbiology - Last 24 Hours (Table) 05/27/19 17:22 Blood Culture - Preliminary Blood No Growth after 24 hours H & H 05/27/19 05/28/19 Range/Units 17:22 06:27 Hgb 13.3 12.3 (11.4-16.0) gm/dL Hct 38.9 36.4 (34.0-46.0) % Result Diagrams: 05/28/19 06:27 05/28/19 06:27 - Diagnostic results Knee x-ray: report reviewed Assessment and Plan (1) Cellulitis of right knee Narrative/Plan: Some minimal purulence was expressed at bedside. There is was no focal fluid collection or abcess to drain. The knee joint itself does not appear septic. Recommend continued IV antibiotics per infectious disease, pain management and wound care. Will follow closely and if she does not improve, we will consider further invasive intervention. Current Visit: Yes Status: Acute Priority: Medium Code(s): L03.115 - CELLULITIS OF RIGHT LOWER LIMB SNOMED Code(s): 51840649197015103 (2) Septic bursitis Current Visit: Yes Status: Acute Priority: Medium Code(s): M71.10 - OTHER INFECTIVE BURSITIS, UNSPECIFIED SITE SNOMED Code(s): 270797240
--- NOTE | 2019-05-28 20:52 | P.PN ---
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 In the emergency department she underwent an extensive evaluation. On arrival she was tachycardic with a heart rate of 110. Laboratory analysis showed an elevated white blood cell count 11.5, an x-ray of the right knee showed soft tissue edema with trace amounts of fluid in the suprapatellar bursa. She was given a dose of Rocephin and vancomycin the emergency department. She was admitted for concerns of septic bursitis. Vancomycin was continued. Orthopedic surgery and infectious disease were consulted. She was evaluated by orthopedic surgery who did not see need for drainage. She was ordered to soak the knee. Patient seen and examined at bedside. Pain is better controlled today. No chest pain, shortness breath, nausea, or vomiting. Still having difficulty bearing weight on her knee. Also having a hard time with moving the knee. The wound in her knee as "more with continued drainage. Objective - Vital Signs Vital signs: Vital Signs Temp 98.2 F 05/28/19 19:30 Pulse 108 H 05/28/19 19:30 Resp 16 05/28/19 19:30 BP 136/84 05/28/19 19:30 Pulse Ox 100 05/28/19 19:30 Intake & Output 05/28/19 05/28/19 05/29/19 06:59 18:59 06:59 Intake Total 250 Balance 250 Intake: Intake, IV Titration 250 Amount Vancomycin 1,250 mg In 250 Sodium Chloride 0.9% 250 ml @ 125 mls/hr IVPB Q8H [facility] Rx#:[id number] Other: # Voids 2 - Exam General: non toxic, no distress, appears older than stated age Derm: Erythema, swelling, warmth, and small opening of the right knee, warm, dry Head: atraumatic, normocephalic, symmetric Eyes: EOMI, no lid lag, anicteric sclera Mouth: no lip lesion, mucus membranes moist Cardiovascular: S1S2 reg, no murmur, positive posterior tibial pulse bilateral, Lungs: CTA bilateral, no rhonchi, no rales , no accessory muscle use Abdominal: soft, nontender to palpation, no guarding, no appreciable organomegaly Ext: no gross muscle atrophy, no edema, no contractures Neuro: CN II-XI grossly intact, no focal neuro deficits Psych: Alert, oriented, appropriate affect - Labs CBC & Chem 7: 05/28/19 06:27 05/28/19 06:27 Labs: Abnormal Lab Results - Last 24 Hours (Table) 05/28/19 Range/Units 06:27 Potassium 3.3 L (3.5-5.1) mmol/L BUN 4 L (7-17) mg/dL Glucose 109 H (74-99) mg/dL Calcium 8.2 L (8.4-10.2) mg/dL Microbiology - Last 24 Hours (Table) 05/27/19 17:22 Blood Culture - Preliminary Blood No Growth after 24 hours Assessment and Plan Assessment: Right knee cellulitis with possible and intractable pain - septic bursitis felt unlikely by ortho - vanco - ortho recs appreciated, warm soaks - IV fluids - Blood cultures negative to date - pain control - ID recs appreciated- Drainage of prepatellar bursa if no rapid improvement. Silvadene dressings Tobacco abuse - cessation - nicotine replacement asthma, mild intermittent - not on outpatient medications - prn albuterol Risks of discharge include worsening of infection leading to bacteremia or sepsis. Worsening damage of the knee joint. DVT prophylaxis: Early ambulation Discussed with: patient Anticipated discharge date: 2-[address]: home A total of 35 minutes was spent on the care of this complex patient more than 50% of the time was spent in counseling and care coordination.
[2019-05-29] MEDS: SODIUM CHLORIDE 0.9% 1,000 ML IV SCH ×3 (00:35→20:33)
[2019-05-29] MEDS: HYDROcodone/APAP 5-325MG 1 EACH TAB PO PRN ×3 (03:07→17:50)
[2019-05-29] MEDS: VANCOMYCIN 1,250 MG in SODIUM CHLORIDE 0.9% 250 ML IVPB SCH (03:08)
[2019-05-29] MEDS: ONDANSETRON 4 MG/2 ML VIAL IVP SCH ×3 (04:04→17:51)
[2019-05-29] MEDS: NICOTINE 14MG/24HR PATCH TRANSDERM SCH (07:44)
[2019-05-29] MEDS: MULTIVITAMINS, THERA 1 EACH TAB PO SCH (07:44)
[2019-05-29] MEDS ORDERED: LIDOCAINE 1%-EPI 1:100,000 20 ML VIAL SQ ONE (10:00)
[2019-05-29] MEDS ORDERED: VANCOMYCIN TROUGH DUE 1 EACH MISC MISCELLANE ONE (10:00)
[2019-05-29] MEDS: MORPHINE SULFATE 4 MG/ML SYRINGE IVP PRN (10:02)
[2019-05-29] MEDS: KETOROLAC 30 MG/ML 1 ML VIAL IVP PRN ×2 (10:03→23:57)
--- NOTE | 2019-05-29 10:37 | P.PN ---
Subjective Progress Note Date: 05/29/19 Principal diagnosis: Right knee septic bursitis Patient is seen at bedside this morning. We have been following for right knee prepatellar septic bursitis. She does not feel improved today. She continues to have pain at the right anterior knee. She is currently denying fever or chills. She denies numbness or tingling. She has no new complaints. She has been on IV antibiotics per Dr. Scott. Objective - Vital Signs Vital signs: Vital Signs Temp 98.2 F 05/29/19 07:00 Pulse 105 H 05/29/19 07:00 Resp 18 05/29/19 07:00 BP 136/79 05/29/19 07:00 Pulse Ox 100 05/29/19 07:00 Intake & Output 05/28/19 05/29/19 05/29/19 18:59 06:59 18:59 Intake Total 1000 Balance 1000 Intake: Intake, IV Titration 1000 Amount Sodium Chloride 0.9% 1, 1000 000 ml @ 100 mls/hr IV . Q10H [facility] Rx#:[id number] Other: Voiding Method Toilet # Voids 2 2 - Exam The erythema of the skin has improved some within the demarcation however she has developed a satellite lesion that is blisterlike. There is some more dehiscence and drainage of purulence at the prepatellar area. She is pain at this area as expected. There is no progression of cellulitis. Calf is soft and nontender. Motor and sensation is grossly intact throughout the right lower extremity. She has 2+ dorsalis pedis pulses less than 2 second capillary refill. - Constitutional General appearance: Present: no acute distress - Labs CBC & Chem 7: 05/28/19 06:27 05/28/19 06:27 Labs: Microbiology - Last 24 Hours (Table) 05/27/19 17:22 Blood Culture - Preliminary Blood No Growth after 24 hours Assessment and Plan (1) Cellulitis of right knee Narrative/Plan: Patient has been discussed with Dr. Scott and Dr. Prather. We decided to proceed with a bedside I&D. Utilizing sterile technique the area of the prepatellar bursa was vertically incised. Cultures were obtained prior to copious irrigation and expression of the wound after which it was dressed with a wet bandage. She'll continue with wet-to-dry dressing as well as soaks. continued IV antibiotics per infectious disease, pain management and wound care. Will follow closely and if she does not improve we will consider taking to the operating room. She will be nothing by mouth after midnight. Current Visit: Yes Status: Acute Priority: Medium Code(s): L03.115 - CELLULITIS OF RIGHT LOWER LIMB SNOMED Code(s): 06129018352127779 (2) Septic bursitis Current Visit: Yes Status: Acute Priority: Medium Code(s): M71.10 - OTHER INFECTIVE BURSITIS, UNSPECIFIED SITE SNOMED Code(s): 340355244 Time with Patient: Greater than 30 (Performing I&D)
[2019-05-29 10:40] VITALS: BMI 19.5
[2019-05-29] MEDS: VANCOMYCIN 1,500 MG in SODIUM CHLORIDE 0.9% 250 ML IVPB SCH ×2 (12:56→20:33)
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
--- NOTE | 2019-05-29 16:26 | P.PN ---
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 In the emergency department she underwent an extensive evaluation. On arrival she was tachycardic with a heart rate of 110. Laboratory analysis showed an elevated white blood cell count 11.5, an x-ray of the right knee showed soft tissue edema with trace amounts of fluid in the suprapatellar bursa. She was given a dose of Rocephin and vancomycin the emergency department. She was admitted for concerns of septic bursitis. Vancomycin was continued. Orthopedic surgery and infectious disease were consulted. She was evaluated by orthopedic surgery who did not see need for drainage. She was ordered to soak the knee. She did not have significant improvement in her knee erythema or swelling and she underwent bedside drainage on 05/29. Patient seen and examined at bedside. Feeling much better after her knee was d rained at bedside. Denies any chest pain, shortness of breath, nausea, vomiting, or diarrhea. Her son is with her visiting. Objective - Vital Signs Vital signs: Vital Signs Temp 98.1 F 05/29/19 15:00 Pulse 110 H 05/29/19 15:00 Resp 20 05/29/19 15:00 BP 114/80 05/29/19 15:00 Pulse Ox 100 05/29/19 15:00 Intake & Output 05/28/19 05/29/19 05/29/19 18:59 06:59 18:59 Intake Total 1000 Balance 1000 Weight 63.503 kg Intake: Intake, IV Titration 1000 Amount Sodium Chloride 0.9% 1, 1000 000 ml @ 100 mls/hr IV . Q10H [facility] Rx#:[id number] Other: Voiding Method Toilet # Voids 2 2 2 - Exam General: non toxic, no distress, appears older than stated age Derm: Bob wrap in place over right knee warm, dry Head: atraumatic, normocephalic, symmetric Eyes: EOMI, no lid lag, anicteric sclera Mouth: no lip lesion, mucus membranes moist Cardiovascular: S1S2 reg, no murmur, positive posterior tibial pulse bilateral, Lungs: CTA bilateral, no rhonchi, no rales , no accessory muscle use Abdominal: soft, nontender to palpation, no guarding, no appreciable organomegaly Ext: no gross muscle atrophy, no edema, no contractures Neuro: CN II-XI grossly intact, no focal neuro deficits Psych: Alert, oriented, appropriate affect - Labs CBC & Chem 7: 05/28/19 06:27 05/28/19 06:27 Labs: Microbiology - Last 24 Hours (Table) 05/27/19 17:22 Blood Culture - Preliminary Blood No Growth after 24 hours Assessment and Plan Assessment: Right knee cellulitis with prepatellar septic bursitis and intractable pain -Status post bedside I&D 05/29 by orthopedics - vanco - ortho recs appreciated, if lack of clinical improvement may need further drainage and debridement - await cultures - IV fluids - Blood cultures negative to date - pain control - ID recs appreciated- Drainage of prepatellar bursa if no rapid improvement. Silvadene dressings Tobacco abuse - cessation - nicotine replacement asthma, mild intermittent - not on outpatient medications - prn albuterol DVT prophylaxis: Early ambulation Discussed with: patient Anticipated discharge date: 2-[address]: home A total of 35 minutes was spent on the care of this complex patient more than 50% of the time was spent in counseling and care coordination.
[2019-05-30] MEDS: ONDANSETRON 4 MG/2 ML VIAL IVP SCH ×3 (02:46→16:14)
[2019-05-30] MEDS: SODIUM CHLORIDE 0.9% 1,000 ML IV SCH ×2 (05:03→16:14)
[2019-05-30] MEDS: VANCOMYCIN 1,500 MG in SODIUM CHLORIDE 0.9% 250 ML IVPB SCH ×3 (05:03→21:16)
[2019-05-30 07:32] LABS: African American GFR (CKD) >90 (>60 ml/min/1.73 sqM); Anion Gap 9 mmol/L; Blood Urea Nitrogen 4 mg/dL (7-17); Calcium 8.2 mg/dL (8.4-10.2); Carbon Dioxide 25 mmol/L (22-30); Chloride 105 mmol/L (98-107); Glucose 94 mg/dL (74-99); Potassium 3.5 mmol/L (3.5-5.1); Sodium 139 mmol/L (137-145)
[2019-05-30 07:54] LABS: HCT 37.7 % (34.0-46.0); HGB 12.9 gm/dL (11.4-16.0); MCH 29.8 pg (25.0-35.0); MCHC 34.1 g/dL (31.0-37.0); MCV 87.3 fL (80.0-100.0); Mean Platelet Volume 6.9; Platelet Count 245 k/uL (150-450); RBC 4.32 m/uL (3.80-5.40); RDW 12.5 % (11.5-15.5); WBC 5.1 k/uL (3.8-10.6)
[2019-05-30] MEDS: MULTIVITAMINS, THERA 1 EACH TAB PO SCH ×2 (08:24→08:25)
[2019-05-30] MEDS: NICOTINE 14MG/24HR PATCH TRANSDERM SCH (08:24)
[2019-05-30] MEDS: HYDROcodone/APAP 5-325MG 1 EACH TAB PO PRN ×2 (08:31→21:47)
[2019-05-30] MEDS: MORPHINE SULFATE 4 MG/ML SYRINGE IVP PRN ×2 (09:51→21:46)
--- NOTE | 2019-05-30 10:25 | P.PN ---
Subjective Progress Note Date: 05/30/19 Principal diagnosis: Right knee septic bursitis Patient is seen at bedside this morning. We have been following for right knee prepatellar septic bursitis. Yesterday I did a bedside I&D and cultures are showing presumptive MRSA. She has been on IV vancomycin. She does not feel improved today. She was talking about possibly leaving AMA. She continues to have pain at the right anterior knee. She is currently denying fever or chills. She denies numbness or tingling. She has no new complaints. Objective - Vital Signs Vital signs: Vital Signs Temp 98.2 F 05/30/19 08:15 Pulse 96 05/30/19 08:15 Resp 16 05/30/19 08:15 BP 128/86 05/30/19 08:15 Pulse Ox 99 05/30/19 08:15 Intake & Output 05/29/19 05/30/19 05/30/19 18:59 06:59 18:59 Weight 63.503 kg Other: Voiding Method Toilet # Voids 2 1 - Exam The erythema of the skin continues to show some improvement within the demarcation. The dressing is removed and the wet sterile gauze that was packed is no longer in place and thus there has been some closure of the wound. There continues to be some purulent drainage. She has pain at this area as expected. There is no progression of cellulitis. Calf is soft and nontender. Motor and sensation is grossly intact throughout the right lower extremity. She has 2+ dorsalis pedis pulses less than 2 second capillary refill. - Constitutional General appearance: Present: no acute distress - Labs CBC & Chem 7: 05/30/19 06:32 05/30/19 06:32 Labs: Abnormal Lab Results - Last 24 Hours (Table) 05/30/19 Range/Units 06:32 BUN 4 L (7-17) mg/dL Creatinine 0.44 L (0.52-1.04) mg/dL Calcium 8.2 L (8.4-10.2) mg/dL Microbiology - Last 24 Hours (Table) 05/29/19 10:20 Gram Stain - Preliminary Knee - Right Wound Culture - Preliminary Presumptive MRSA 05/27/19 17:22 Blood Culture - Preliminary Blood No Growth after 48 hours 05/29/19 10:20 Anaerobic Culture - Preliminary Knee - Right 05/29/19 10:20 Fungal Culture - Preliminary Knee - Right Assessment and Plan (1) Cellulitis of right knee Narrative/Plan: I again performed a bedside I&D utilizing sterile technique. The wound was anesthetized with local lidocaine. The wound was the opened up and copiously irrigated with sterile saline. The wound was then packed with 1/4 inch iodoform gauze. The wound was then dressed with sterile 4 x 4 gauze, Kerlix and an Bob bandage was applied to the right lower extremity. She is to maintain bandage and packing. Continued IV antibiotics per infectious disease. Continue pain m anagement and wound care. Will follow closely and if she does not improve we will consider taking her to the operating room tomorrow 05/31/2019. She may eat today. She will be nothing by mouth again after midnight tonight. Current Visit: Yes Status: Acute Priority: Medium Code(s): L03.115 - C ELLULITIS OF RIGHT LOWER LIMB SNOMED Code(s): 48686467562141083 (2) Septic bursitis Current Visit: Yes Status: Acute Priority: Medium Code(s): M71.10 - OTHER INFECTIVE BURSITIS, UNSPECIFIED SITE SNOMED Code(s): 597811196 Time with Patient: Greater than 30 (Performing I&D procedure)
[2019-05-30] MEDS ORDERED: VANCOMYCIN TROUGH DUE 1 EACH MISC MISCELLANE ONE (11:00)
[2019-05-30] MEDS: KETOROLAC 30 MG/ML 1 ML VIAL IVP PRN (13:46)
[2019-05-30 14:17] LABS: Urine Alcohol Negative (Negative); Urine Barbiturate Negative (Negative); Urine Cocaine Negative (Negative); Urine Methadone Negative (Negative); Urine Opiates Negative (Negative); Urine Phencyclidine Negative (Negative)
[2019-05-30] MEDS ORDERED: HYDROCORTISONE 1% CREAM 30 GM TUBE TOPICAL PRN (15:36)
[2019-05-30] MEDS ORDERED: diphenhydrAMINE 50 MG CAP PO PRN (15:36)
[2019-05-30] MEDS ORDERED: ONDANSETRON 4 MG/2 ML VIAL IVP PRN (19:25)
--- NOTE | 2019-05-30 19:27 | P.PN ---
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 In the emergency department she underwent an extensive evaluation. On arrival she was tachycardic with a heart rate of 110. Laboratory analysis showed an elevated white blood cell count 11.5, an x-ray of the right knee showed soft tissue edema with trace amounts of fluid in the suprapatellar bursa. She was given a dose of Rocephin and vancomycin the emergency department. She was admitted for concerns of septic bursitis. Vancomycin was continued. Orthopedic surgery and infectious disease were consulted. She was evaluated by orthopedic surgery who did not see need for drainage. She was ordered to soak the knee. She did not have significant i mprovement in her knee erythema or swelling and she underwent bedside drainage on 05/29. She still had swelling on 05/30 and repeat bedside I and D. Patient seen and examined at bedside. Reports that her pain is feeling better. He was feeling anxious this morning wanting to leave, we discussed that she should not leave AGAINST MEDICAL ADVICE. No nausea or vomiting. No diarrhea. No chest pain or shortness of breath. Reports that her anxiety is better. Objective - Vital Signs Vital signs: Vital Signs Temp 98.8 F 05/30/19 14:53 Pulse 90 05/30/19 14:53 Resp 16 05/30/19 14:53 BP 124/78 05/30/19 14:53 Pulse Ox 99 05/30/19 08:15 Intake & Output 05/30/19 05/30/19 05/31/19 06:59 18:59 06:59 Other: Voiding Method Toilet # Voids 1 3 - Exam General: non toxic, no distress, appears older than stated age Derm: Bob wrap in place over right knee warm, dry Head: atraumatic, normocephalic, symmetric Eyes: EOMI, no lid lag, anicteric sclera Mouth: no lip lesion, mucus membranes moist Cardiovascular: S1S2 reg, no murmur, positive posterior tibial pulse bilateral, Lungs: CTA bilateral, no rhonchi, no rales , no accessory muscle use Abdominal: soft, nontender to palpation, no guarding, no appreciable organomegaly Ext: no gross muscle atrophy, no edema, no contractures Neuro: CN II-XI grossly intact, no focal neuro deficits Psych: Alert, oriented, appropriate affect - Labs CBC & Chem 7: 05/30/19 06:32 05/30/19 06:32 Labs: Abnormal Lab Results - Last 24 Hours (Table) 05/29/19 05/30/19 Range/Units 09:53 06:32 BUN 4 L (7-17) mg/dL Creatinine 0.44 L (0.52-1.04) mg/dL Calcium 8.2 L (8.4-10.2) mg/dL Ur Amphetamine Screen Positive H (Negative) ng/mL U Benzodiazepines Scrn Positive H (Negative) ng/mL U Cannabinoids Screen Positive H (Negative) ng/mL Microbiology - Last 24 Hours (Table) 05/29/19 10:20 Gram Stain - Preliminary Knee - Right Wound Culture - Preliminary Presumptive MRSA 05/27/19 17:22 Blood Culture - Preliminary Blood No Growth after 48 hours 05/29/19 10:20 Anaerobic Culture - Preliminary Knee - Right 05/29/19 10:20 Fungal Culture - Preliminary Knee - Right Assessment and Plan Assessment: Right knee cellulitis with prepatellar septic bursitis and intractable pain - Status post bedside I&D 05/29 and 05/30 by orthopedics - vanco - ortho recs appreciated, if lack of clinical improvement may need further drainage and debridement in OR tomorrow - await final cultures presumptive MRSA - IV fluids - Blood cultures negative to date - pain control - ID recs appreciated Tobacco abuse - cessation - nicotine replacement asthma, mild intermittent - not on outpatient medications - prn albuterol Illicit substance use - cessation DVT prophylaxis: Early ambulation Discussed with: patient Anticipated discharge date: 1-[address]: home A total of 35 minutes was spent on the care of this complex patient more than 50% of the time was spent in counseling and care coordination.
[2019-05-30] MEDS ORDERED: diphenhydrAMINE 25 MG CAP PO PRN (21:59)
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
[2019-05-31] MEDS: VANCOMYCIN 1,500 MG in SODIUM CHLORIDE 0.9% 250 ML IVPB SCH ×2 (04:07→12:03)
[2019-05-31 08:56] LABS: African American GFR (CKD) >90 (>60 ml/min/1.73 sqM); Anion Gap 7 mmol/L; Blood Urea Nitrogen 4 mg/dL (7-17); Calcium 8.4 mg/dL (8.4-10.2); Carbon Dioxide 28 mmol/L (22-30); Chloride 106 mmol/L (98-107); Glucose 86 mg/dL (74-99); Potassium 3.8 mmol/L (3.5-5.1); Sodium 141 mmol/L (137-145)
[2019-05-31] MEDS: MULTIVITAMINS, THERA 1 EACH TAB PO SCH (09:16)
[2019-05-31] MEDS: HYDROcodone/APAP 5-325MG 1 EACH TAB PO PRN (09:19)
[2019-05-31] MEDS: NICOTINE 14MG/24HR PATCH TRANSDERM SCH (09:19)
[2019-05-31 12:36] VITALS: BP 122/76; PULSE 100; RESP 16; TEMP 97.7
[2019-05-31] MEDS ORDERED: METOCLOPRAMIDE 5 MG/ML 2 ML VIAL IVP PRN (13:23)
[2019-05-31] MEDS ORDERED: MIDAZOLAM 2 MG/2 ML VIAL IV PRN (13:23)
[2019-05-31] MEDS ORDERED: LIDOCAINE 1% 20 ML VIAL (10MG/ML) FOR IV START INTRADERMA PRN (13:23)
[2019-05-31] MEDS ORDERED: HYDROmorphone 0.5 MG/0.5 ML SYRINGE IVP PRN (13:23)
[2019-05-31] MEDS ORDERED: ONDANSETRON 4 MG/2 ML VIAL IVP PRN (13:23)
[2019-05-31] MEDS ORDERED: LACTATED RINGERS 1,000 ML IV SCH (13:30)
[2019-05-31] MEDS ORDERED: KETOROLAC 30 MG/ML 1 ML VIAL IVP SCH (18:00)
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
== END 2019-05-31 14:41 | disposition left against medical advice (07) | DRG 558 ==
LOC: EC 14:46 → 4SSUR 17:27 → OBSVTOIN 05-29 12:39
PROVIDERS: ADMIT Family Medicine; ATTEND Family Medicine
DX: M71.161 Other infective bursitis, right knee (principal); L03.115 Cellulitis of right lower limb; B95.62 Methicillin resistant Staphylococcus aureus infection as the cause of diseases classified elsewhere; J45.20 Mild intermittent asthma, uncomplicated; F12.10 Cannabis abuse, uncomplicated; Z71.6 Tobacco abuse counseling; F17.210 Nicotine dependence, cigarettes, uncomplicated; F32.9 Major depressive disorder, single episode, unspecified; F41.9 Anxiety disorder, unspecified; G40.909 Epilepsy, unspecified, not intractable, without status epilepticus; Z80.8 Family history of malignant neoplasm of other organs or systems; Z86.14 Personal history of Methicillin resistant Staphylococcus aureus infection; Z80.3 Family history of malignant neoplasm of breast; D49.0 Neoplasm of unspecified behavior of digestive system; Z88.1 Allergy status to other antibiotic agents; F14.11 Cocaine abuse, in remission
CPT/HCPCS: 36415; 80048; 80053; 80202; 80306; 81003; 81025; 83605; 85025; 85027; 87040; 87070; 87075; 87077; 87102; 87186; 87205; 96365; 96366; 96372; 99284

== ENCOUNTER 2023-09-17 23:11 | Emergency (ER) | payer OTHER ==
--- NOTE | 2023-09-18 00:18 | XR ---
EXAM: XR Left Hand Complete, 3 or More Views CLINICAL HISTORY: ITS.REASON XR Reason: closed garage door on fingers TECHNIQUE: Frontal, lateral and oblique views of the left hand. COMPARISON: No relevant prior studies available. 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 No acute fracture. No dislocation. Soft tissues: Unremarkable. No radiopaque foreign body. 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 No acute fracture.
[2023-09-18] MEDS ORDERED: ACETAMINOPHEN TAB 500 MG TAB PO STA (00:35)
[2023-09-18] MEDS ORDERED: IBUPROFEN 800 MG TAB PO STA (00:35)
--- NOTE | 2023-09-18 00:35 | ED ---
Upper Extremity HPI - General Chief Complaint: Extremity Injury, Upper Stated Complaint: Left hand injury Time Seen by Provider: 09/17/23 23:35 Source: patient Mode of arrival: ambulatory Limitations: no limitations - History of Present Illness Initial Comments: 47-year-old female presenting with chief complaint of left hand injury. Patient got her finger stuck in the garage door. She is particularly complaining of pain to the second and third digit. There is swelling noted to the distal end. She is having some numbness. She still has full range of motion of the fingers and hand. No lacerations or abrasions. - Related Data Home Medications Medication Instructions Recorded Confirmed Acetaminophen [Tylenol] 650 mg PO Q6H PRN 05/27/19 05/27/19 Ibuprofen [Motrin Ib] 800 mg PO Q6H PRN 05/27/19 05/27/19 Previous Rx's Medication Instructions Recorded Sulfamethox-Tmp 800-160Mg [Bactrim 1 tab PO Q12HR #28 tab 05/31/19 DS 800-160 mg] Allergies Allergy/AdvReac Type Severity Reaction Status Date / Time erythromycin base Allergy Severe Unknown Verified 09/17/23 23:22 [From E-Mycin] azithromycin [From Zithromax] Allergy Unknown Verified 09/17/23 23:22 Childhood Review of Systems ROS Statement: Those systems with pertinent positive or pertinent negative responses have been documented in the HPI. ROS Other: All systems not noted in ROS Statement are negative. 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: MRSA Date of last positivie culture/infection: 05/29/19 MDRO Source:: Right Knee Past Surgical History: No Surgical Hx Reported Additional Past Surgical History / Comment(s): Surgery on right wrist Past Anesthesia/Blood Transfusion Reactions: No Reported Reaction Past Psychological History: Depression Smoking Status: Current every day smoker Past Alcohol Use History: Rare Past Drug Use History: Marijuana, Opiates, Prescription Drug Abuse - Past Family History Mother Family Medical History: Cancer Additional Family Medical History / Comment(s): mom had throat cancer, 3 aunts had cancer-breast General Exam Limitations: no limitations General appearance: alert, in no apparent distress Head exam: Present: atraumatic, normocephalic Eye exam: Present: normal appearance, EOMI Neck exam: Present: normal inspection Respiratory exam: Absent: respiratory distress Cardiovascular Exam: Present: tachycardia Left Hand Wrist exam: Present: tenderness (Second and third fingers), swelling (Second and third fingers) Vascular: Absent: vascular compromise Neurological exam: Present: alert, oriented X3 Psychiatric exam: Present: normal affect, normal mood Skin exam: Present: warm, dry Course Vital Signs 09/17/23 23:22 Temperature 97.7 F Pulse Rate 118 H Blood Pressure 126/88 O2 Sat by Pulse 98 Oximetry Medical Decision Making - Medical Decision Making Was pt. sent in by a medical professional or institution (, PA, HORTICULTURAL SERVICES SUPERVISOR, urgent care, hospital, or fpc...) When possible be specific @ -No Did you speak to anyone other than the patient for history (EMS, parent, family, police, friend...)? What history was obtained from this source @ -No Did you review nursing and triage notes (agree or disagree)? Why? @ -I reviewed and agree with nursing and triage notes Were old charts reviewed (outside hosp., previous admission, EMS record, old EKG, old radiological studies, urgent care reports/EKG's, fpc records)? Report findings @ -No old charts were reviewed Differential Diagnosis (chest pain, altered mental status, abdominal pain women, abdominal pain men, vaginal bleeding, weakness, fever, dyspnea, syncope, headache, dizziness, GI bleed, back pain, seizure, CVA, palpatations, mental health, musculoskeletal)? @ -Differential Musculoskeletal Muscular strain, contusion, ligament sprain, fracture, arthritis, septic arthritis, bursitis, cellulitis, muscle spasm, nerve compression, DVT, arterial occlusion, herpes zoster, electrolyte abnormality, tumor.... This is not meant to be in all inclusive list EKG interpreted by me (3pts min.). @ -As above X-rays interpreted by me (1pt min.). @ -X-ray shows no acute fracture. Osteochondroma arising from the scaphoid measures [address] interpreted by me (1pt min.). @ -None done U/S interpreted by me (1pt. min.). @ -None done What testing was considered but not performed or refused? (CT, X-rays, U/S, labs)? Why? @ -None What meds were considered but not given or refused? Why? @ -None Did you discuss the management of the patient with other professionals (professionals i.e. , PA, HORTICULTURAL SERVICES SUPERVISOR, lab, RT, psych nurse, social human services assistants, floor worker transfer bay, teacher, chief clinical officer, case worker)? Give summary @ -No Was smoking cessation discussed for >3mins.? @ -No Was critical care preformed (if so, how long)? @ -No Were there social determinants of health that impacted care today? How? (Homelessness, low income, unemployed, alcoholism, drug addiction, transportation, low edu. Level, literacy, decrease access to med. care, longterm, rehab)? @ -No Was there de-escalation of care discussed even if they declined (Discuss DNR or withdrawal of care, Hospice)? DNR status @ -No What co-morbidities impacted this encounter? (DM, HTN, Smoking, COPD, CAD, Cancer, CVA, ARF, Chemo, Hep., AIDS, mental health diagnosis, sleep apnea, morbid obesity)? @ -None Was patient admitted / discharged? Hospital course, mention meds given and route, prescriptions, significant lab abnormalities, going to OR and other pertinent info. @ -47-year-old female presenting with chief complaint of left hand pain after shutting her fingers under her garage door. She is neurovascularly intact. There is swelling and tenderness to the distal end of the second and third digits. X-ray is negative for fracture or dislocation. Patient is provided with splints for comfort and educated on supportive management. Follow-up with PCP. Report back to ER with any new or worsening symptoms. Discussed return parameters and answered all questions. Patient conveyed verbal understanding and agreed to the plan. I discussed this case in detail with my attending Dr. Lim Undiagnosed new problem with uncertain prognosis? @ -No Drug Therapy requiring intensive monitoring for toxicity (Heparin, Nitro, Insulin, Cardizem)? @ -No Were any procedures done? @ -No Diagnosis/symptom? @ -Finger injury Acute, or Chronic, or Acute on Chronic? @ -Acute Uncomplicated (without systemic symptoms) or Complicated (systemic symptoms)? @ -Uncomplicated Side effects of treatment? @ -No Exacerbation, Progression, or Severe Exacerbation? @ -No Poses a threat to life or bodily function? How? (Chest pain, [place], PR, pneumonia, PE, COPD, DKA, ARF, appy, cholecystitis, CVA, Diverticulitis, Homicidal, Suicidal, threat to staff... and all critical care pts) @ -No Disposition Clinical Impression: Finger injury Disposition: HOME SELF-CARE Condition: Good Instructions (If sedation given, give patient instructions): Finger Sprain (ED) Additional Instructions: Follow-up with PCP. Report back to ER with any new or worsening symptoms. Take Motrin and Tylenol as needed for pain control. Is patient prescribed a controlled substance at d/c from ED?: No Referrals: None,Stated [Primary Care Provider] - 1-2 days Time of Disposition: 00:30
[2023-09-18 01:12] VITALS: BP 122/84; PULSE 98; RESP 18; TEMP 98.1
== END 2023-09-18 01:12 | disposition home or self-care (01) ==
LOC: EC 23:11
DX: S69.92XA Unspecified injury of left wrist, hand and finger(s), initial encounter (principal); J45.909 Unspecified asthma, uncomplicated; F17.200 Nicotine dependence, unspecified, uncomplicated; F12.90 Cannabis use, unspecified, uncomplicated; F11.90 Opioid use, unspecified, uncomplicated; Z86.59 Personal history of other mental and behavioral disorders; Z88.6 Allergy status to analgesic agent; Z88.8 Allergy status to other drugs, medicaments and biological substances; Z88.1 Allergy status to other antibiotic agents; W22.8XXA Striking against or struck by other objects, initial encounter
CPT/HCPCS: 99283